=== PATIENT | female | born 1985 | race Caucasian/White ===

== ENCOUNTER 2018-08-24 07:44 | Emergency (ER) | payer MEDICAID, OTHER ==
[~2018-08-24] VITALS: Ht 157.5 cm; Wt 86.0 kg
[2018-08-24 08:21] LABS: BASOPHILS # (AUTO) 0.1 X10'3 (0-0.2); BASOPHILS % (AUTO) 0.4 % (0-1); EOSINOPHILS # (AUTO) 0.2 X10'3 (0-0.9); HEMATOCRIT 41.4 % (35.0-45.0); HEMOGLOBIN 13.9 g/dl (12.0-16.0); LYMPHOCYTES % (AUTO) 23.7 % (21-51); MEAN CORPUSCULAR HEMOGLOBIN 30.3 PG (27.0-31.0); MEAN CORPUSCULAR HGB CONC 33.6 % (33.0-36.5); MEAN CORPUSCULAR VOLUME 90.2 FL (78-98); MEAN PLATELET VOLUME 7.4 FL (7.4-10.4); MONOCYTES # (AUTO) 1.2 X10'3 (0-0.9); MONOCYTES % (AUTO) 6.8 % (2-12); NEUTROPHILS # (AUTO) 11.5 X10'3 (1.8-7.7); NEUTROPHILS % (AUTO) 68.1 % (42-75); PLATELET COUNT 323 X10'3 (140-440); RED BLOOD COUNT 4.59 X10'6 (4.20-5.60); RED CELL DISTRIBUTION WIDTH 15.4 % (11.5-14.5)
[2018-08-24 08:35] LABS: CLARITY,URINE CLEAR (Clear); COLOR,URINE YELLOW (Yellow); GLUCOSE, URINE NEGATIVE (Neg); KETONES,URINE 15 mg/dl (Neg); LEUKOCYTE ESTERASE ,URINE NEGATIVE (Neg); NITRITES, URINE NEGATIVE (Neg); OCCULT BLOOD,URINE NEGATIVE (Neg); PH,URINE 7.5 (4.8-8.0); PROTEIN,URINE NEGATIVE (Neg); UROBILINOGEN,URINE 0.2 E.U/dL (0.2-1.0)
[2018-08-24 08:36] LABS: ALANINE AMINOTRANSFERASE 24 U/L (12-78); ALBUMIN 4.2 G/DL (3.4-5.0); ALBUMIN/GLOBULIN RATIO 1.1 (1.1-1.5); ALKALINE PHOSPHATASE 83 IU/L (46-116); ANION GAP 12 (8-16); ASPARTATE AMINO TRANSFERASE 15 U/L (10-37); BILIRUBIN,TOTAL 0.4 MG/DL (0.1-1.0); BLOOD UREA NITROGEN 15 MG/DL (7-18); BUN/CREATININE RATIO 13.6 (6.6-38.0); C-REACTIVE PROTEIN 0.54 MG/DL (0.0-0.5); CALCIUM 8.9 MG/DL (8.5-10.1); CHLORIDE 105 MMOL/L (99-107); GLUCOSE 99 MG/DL (70-104); LIPASE 65 U/L (73-393); SODIUM 141 MMOL/L (135-145); TOTAL CARBON DIOXIDE 23.7 MMOL/L (24-32); eGFR 57 ML/MIN
[2018-08-24 08:36] LABS: UA COLLECTION TYPE CLN CATCH MIDSTREAM; URINE HCG NEGATIVE (NEG)
[2018-08-24 08:44] LABS: POTASSIUM 2.9 MMOL/L (3.5-5.1)
[2018-08-24] MEDS ORDERED: morphine 4 MG/ML inj SYRINge IV ONE (08:50)
[2018-08-24] MEDS ORDERED: ondansetron/PF 4mg/2ml inj IV ONE (08:50)
[2018-08-24] MEDS ORDERED: potassium 10mEq/100ml NS w/LIDOcaine (10mg/bag) IV ONE (08:55)
[2018-08-24] MEDS ORDERED: CIPR-259 PO (10:03)
[2018-08-24] MEDS ORDERED: HYDR-4353 PO (10:03)
[2018-08-24] MEDS ORDERED: METR500T4 PO (10:03)
[2018-08-24] MEDS ORDERED: TRAM50TA2 PO (10:15)
[2018-08-24 10:50] VITALS: BP 122/62
== END 2018-08-24 10:51 | disposition home or self-care (01) ==
LOC: ER 07:45
DX: R10.11 Right upper quadrant pain (principal); F17.200 Nicotine dependence, unspecified, uncomplicated; Z90.49 Acquired absence of other specified parts of digestive tract; Z90.710 Acquired absence of both cervix and uterus
CPT/HCPCS: 36415; 74176; 80053; 81003; 81025; 83690; 85025; 85610; 85651; 86140; 96365; 96375; 99285; J2270; J2405; J3480

== ENCOUNTER 2018-10-03 13:28 | Emergency (ER) | payer MEDICAID, OTHER ==
[~2018-10-03] VITALS: Ht 157.5 cm; Wt 82.3 kg
[2018-10-03 14:51] LABS: URINE HCG NEGATIVE (NEG)
[2018-10-03 15:08] LABS: CLARITY,URINE CLEAR (Clear); COLOR,URINE YELLOW (Yellow); GLUCOSE, URINE NEGATIVE (Neg); KETONES,URINE NEGATIVE (Neg); LEUKOCYTE ESTERASE ,URINE TRACE (Neg); NITRITES, URINE NEGATIVE (Neg); OCCULT BLOOD,URINE NEGATIVE (Neg); PH,URINE 5.5 (4.8-8.0); PROTEIN,URINE NEGATIVE (Neg); UROBILINOGEN,URINE 0.2 E.U/dL (0.2-1.0)
[2018-10-03] MEDS ORDERED: normal saline 1000ML IV soln IVB ONE ×2 (15:10)
[2018-10-03] MEDS ORDERED: metoclopramide 5 mg/ml inj IV ONE (15:10)
[2018-10-03] MEDS ORDERED: ketorolac trometh. 30mg/ml inj. IV ONE (15:10)
[2018-10-03] MEDS ORDERED: diphenhydrAMINE 50 mg/ml inj IV ONE (15:10)
[2018-10-03 15:16] LABS: UA COLLECTION TYPE CLN CATCH MIDSTREAM
[2018-10-03 15:17] LABS: BACTERIA,URINE FEW /HPF (Neg); RBC,URINE NONE SEEN /HPF (0-2); SQUAMOUS EPITHELIAL CELL,UR FEW /LPF (FEW); WBC,URINE 0-4 /HPF (0-4)
[2018-10-03] MEDS ORDERED: glycopyrrolate 0.2mg/ml inj IV ONE (15:25)
[2018-10-03 15:44] LABS: INR 0.9 INR; PROTHROMBIN TIME 9.5 SECONDS (9.0-12.0)
[2018-10-03 15:48] LABS: ALANINE AMINOTRANSFERASE 27 U/L (12-78); ALBUMIN 3.8 G/DL (3.4-5.0); ALKALINE PHOSPHATASE 81 IU/L (46-116); ANION GAP 13 (8-16); ASPARTATE AMINO TRANSFERASE 12 U/L (10-37); BILIRUBIN,TOTAL 0.6 MG/DL (0.1-1.0); BLOOD UREA NITROGEN 15 MG/DL (7-18); BUN/CREATININE RATIO 17.9 (6.6-38.0); CHLORIDE 103 MMOL/L (99-107); CREATININE 0.84 MG/DL (0.40-0.90); GLUCOSE 94 MG/DL (70-104); POTASSIUM 3.9 MMOL/L (3.5-5.1); SODIUM 139 MMOL/L (135-145); TOTAL PROTEIN 7.6 G/DL (6.4-8.2); eGFR 78 ML/MIN
[2018-10-03 15:57] LABS: BASOPHILS % (AUTO) 0.2 % (0-1); EOSINOPHILS % (AUTO) 0 % (0-6); HEMATOCRIT 41.4 % (35.0-45.0); HEMOGLOBIN 13.7 g/dl (12.0-16.0); LYMPHOCYTES # (AUTO) 2.4 X10'3 (1.1-4.8); LYMPHOCYTES % (AUTO) 10.8 % (21-51); MEAN CORPUSCULAR HEMOGLOBIN 29.6 PG (27.0-31.0); MEAN CORPUSCULAR VOLUME 89.5 FL (78-98); MEAN PLATELET VOLUME 6.8 FL (7.4-10.4); MONOCYTES % (AUTO) 4.4 % (2-12); NEUTROPHILS % (AUTO) 84.6 % (42-75); PLATELET COUNT 445 X10'3 (140-440); RED BLOOD COUNT 4.62 X10'6 (4.20-5.60); RED CELL DISTRIBUTION WIDTH 16.4 % (11.5-14.5); WHITE BLOOD COUNT 22.5 X10'3 (4.5-11.0)
[2018-10-03] MEDS ORDERED: iohexol 300mg/ml 100ml inj. ONE (16:06)
[2018-10-03] MEDS ORDERED: morphine 4 MG/ML inj SYRINge IV ONE (16:10)
[2018-10-03] MEDS ORDERED: CefTRIAXone 2gm/D5W 50ml 50 ML IV ONE (16:10)
[2018-10-03 16:31] LABS: LYMPHOCYTES % (MANUAL) 16.5 % (21-51); MONOCYTES % (MANUAL) 5.5 % (2-12); NEUTROPHILS % (MANUAL) 76.5 % (42-75); REACTIVE LYMPHOCYTES % 0.5 % (0-0); TOTAL CELLS COUNTED 200
[2018-10-03 16:33] LABS: PLATELET ESTIMATE INCREASED
[2018-10-03 16:38] LABS: ANISOCYTOSIS 1+
[2018-10-03 16:39] LABS: TOXIC GRANULATION 2+
[2018-10-03] MEDS ORDERED: lactulose 20gm/30ml cup PO ONE (16:45)
[2018-10-03] MEDS ORDERED: ONDA4TAB12 PO (16:55)
[2018-10-03] MEDS ORDERED: DICY10CA88 PO (16:55)
[2018-10-03 17:27] VITALS: BP 122/78
[2018-10-03] MEDS ORDERED: AMOX-422 PO (17:48)
[2018-10-03] MEDS ORDERED: HYDR-3965 PO (17:54)
== END 2018-10-03 18:05 | disposition home or self-care (01) ==
LOC: ER 13:28
DX: R10.31 Right lower quadrant pain (principal); R11.2 Nausea with vomiting, unspecified; R10.84 Generalized abdominal pain; R19.7 Diarrhea, unspecified; Z90.49 Acquired absence of other specified parts of digestive tract; Z90.710 Acquired absence of both cervix and uterus
CPT/HCPCS: 36415; 74177; 80053; 81001; 81025; 84145; 85025; 85610; 87088; 96365; 96375; 99284; J0696; J1200; J1885; J2270; J2765; J7030; Q9967; J3490